=== PATIENT | male | born 1985 | race Caucasian/White ===

== ENCOUNTER 2022-03-06 17:19 | Emergency (ER) | payer SELFPAY ==
[~2022-03-06] VITALS: Ht 172.7 cm; Wt 80.0 kg
[2022-03-06] MEDS ORDERED: TOPIRAMATE ER200 MG (17:52)
[2022-03-06 18:11] VITALS: BP 140/98
[2022-03-06 18:56] LABS: URINE BILIRUBIN - DIPSTICK NEGATIVE (NEGATIVE); URINE BLOOD DIPSTICK SMALL (NEGATIVE); URINE COLOR YELLOW; URINE GLUCOSE - DIPSTICK 100 mg/dL (NEGATIVE); URINE KETONE NEGATIVE (NEGATIVE); URINE LEUK ESTERASE NEGATIVE (NEGATIVE); URINE PROTEIN - DIPSTICK 30 mg/dL (NEG-TRACE); URINE SPECIFIC GRAVITY 1.015; URINE UROBILINOGEN - DIPSTICK 0.2 E.U./dL (0.2)
[2022-03-06 19:00] LABS: URINE NITRITE - DIPSTICK NEGATIVE (Negative)
[2022-03-06 19:06] LABS: URINE RBC 0-2 RBC/hpf (0-5); URINE WBC 0-2 WBC/hpf (0-5)
== END 2022-03-06 19:00 | disposition left against medical advice (07) | DRG 101 ==
LOC: ED 17:19
PROVIDERS: Family Medicine
DX: R56.9 Unspecified convulsions (principal); F10.10 Alcohol abuse, uncomplicated; Z91.19 Patient's noncompliance with other medical treatment and regimen